=== PATIENT | female | born 1935 | race Two or more races ===

== ENCOUNTER 2017-04-12 21:00 | Emergency (ER) | payer MEDICARE, OTHER ==
[~2017-04-12] VITALS: Ht 160 cm; Wt 95.3 kg
[2017-04-12] MEDS ORDERED: [UNRECOGNIZED DRUG - OTHER] (22:33)
[2017-04-12] MEDS ORDERED: MYRBETRIQ 50 MG (22:33)
[2017-04-12] MEDS ORDERED: BACLOFEN 20 MG (22:33)
[2017-04-12] MEDS ORDERED: METOCLOPRAM (22:33)
[2017-04-12] MEDS ORDERED: HCTZ (22:33)
[2017-04-12] MEDS ORDERED: ALENDRONATE 70 MG (22:33)
[2017-04-12] MEDS ORDERED: PYRIDOSTIGMINE 60 MG (22:33)
[2017-04-12] MEDS ORDERED: CLONAZEPAM TAB 0.5MG (22:33)
[2017-04-12] MEDS ORDERED: LISINOPRIL 10 MG (22:33)
[2017-04-12] MEDS ORDERED: SPIRONOLACT TAB 25MG (22:33)
[2017-04-12] MEDS ORDERED: DEXILANT CAP 60MG DR (22:33)
[2017-04-12] MEDS ORDERED: DONEPEZIL 5 MG (22:33)
[2017-04-12] MEDS ORDERED: ISOSORB MONO (22:33)
[2017-04-12] MEDS ORDERED: TRAMADOL HCL TAB 50MG (22:33)
[2017-04-12] MEDS ORDERED: PAROXETINE 10 MG (22:33)
[2017-04-12] MEDS ORDERED: LYRICA 75 MG (22:33)
[2017-04-12] MEDS ORDERED: ATORVASTATIN TAB 40MG (22:33)
[2017-04-12] MEDS ORDERED: IBUPROFEN TAB 800MG (22:33)
[2017-04-12] MEDS ORDERED: NAMENDA 7 MG (22:33)
[2017-04-12] MEDS ORDERED: CARVEDILOL 3.125 MG (22:33)
--- NOTE | 2017-04-12 22:56 | NUR ---
pt to room via w/c. Pt c/o left sided rib pain radiating to her back s/p mech fall. Pt repositioned with pillows for comfort. Resps shallow but otherwise no resp distress noted. Family remains at bedside. Awaiting further eval.
[2017-04-12] MEDS ORDERED: HYDROMORPHONE 1 MG/1 ML DISP.SYRIN IV ONE (23:15)
[2017-04-12] MEDS ORDERED: ONDANSETRON 4 MG/2 ML VIAL IV ONE (23:15)
--- NOTE | 2017-04-12 23:27 | NUR ---
pt medicated for discomfort, will monitor for effects of medication. Pt to CT via [facility]
[2017-04-12] MEDS ORDERED: HYDROMORPHONE 1 MG/1 ML DISP.SYRIN ONE (23:28)
[2017-04-12] MEDS ORDERED: ONDANSETRON 4 MG/2 ML VIAL ONE (23:28)
[2017-04-12 23:34] LABS: BASOPHILS % (AUTO) 0.6 % (0.0-2.0); EOSINOPHILS # (AUTO) 0.2 K/uL (0.0-0.7); EOSINOPHILS % (AUTO) 2.8 % (0.0-7.0); HEMATOCRIT 46.1 % (37-47); HEMOGLOBIN 15.8 G/DL (12.0-16.0); LYMPHOCYTES # (AUTO) 2.1 K/UL (0.8-4.8); LYMPHOCYTES % (AUTO) 26.5 % (20.5-51.5); MEAN CORPUSCULAR HEMOGLOBIN 30.1 UUG (27.0-31.0); MEAN CORPUSCULAR HGB CONC 34 g/dL (32.0-37.0); MEAN CORPUSCULAR VOLUME 88.2 FL (81.0-99.0); MONOCYTES # (AUTO) 0.7 K/UL (0.1-1.30); MONOCYTES % (AUTO) 9.2 % (0.0-11.0); NEUTROPHILS # (AUTO) 5.1 K/UL (1.8-8.9); NEUTROPHILS % (AUTO) 60.9 % (38.5-71.5); PLATELET COUNT (AUTO) 254 K/UL (150-450); RED BLOOD CELL COUNT(AUTO) 5.23 MIL/UL (4.2-5.4); WHITE BLOOD COUNT (AUTO) 8.1 K/UL (4.0-11.2)
[2017-04-12 23:46] LABS: ALANINE AMINOTRANSFERASE 50 U/L (14-59); ALKALINE PHOSPHATASE 132 U/L (50-136); ASPARTATE AMINOTRANSFERASE 30 U/L (15-37); BILIRUBIN,DIRECT 0.1 mg/dL (0.0-0.2); BILIRUBIN,TOTAL 0.9 mg/dL (0.2-1.0); CARBON DIOXIDE 26 mmol/L (21-32); CHLORIDE 103 mmol/L (98-107); CREATININE 0.8 mg/dL (0.6-1.3); GLUCOSE 120 mg/dL (74-106); LIPASE 63 U/L (73-393); POTASSIUM 3.5 mmol/L (3.5-5.1); TOTAL PROTEIN, SERUM 7.2 g/dL (6.4-8.2); UREA NITROGEN, BLOOD 13 mg/dL (7-18)
--- NOTE | 2017-04-12 23:52 | NUR ---
Pt returned from CT via [facility].
[2017-04-13] MEDS ORDERED: HYDROMORPHONE 1 MG/1 ML DISP.SYRIN IV ONE (00:45)
--- NOTE | 2017-04-13 01:04 | NUR ---
Pt medicated for returning pain. Will monitor for effects of medication
[2017-04-13] MEDS ORDERED: HYDROMORPHONE 1 MG/1 ML DISP.SYRIN ONE (01:16)
--- NOTE | 2017-04-13 01:30 | NUR ---
Pt stable for discharge per Dr. Suarez. IV dc'd, catheter intact. Drsg applied. No problems noted to site. Pt and family given ACI. Both verbalized understanding of dc instructions. Pt wheeled out of er via w/c with ride home.
[2017-04-13 01:41] VITALS: BP 115/63
== END 2017-04-13 01:30 | disposition home or self-care (01) ==
LOC: ER 21:02
DX: S39.81XA Other specified injuries of abdomen, initial encounter (principal); W17.2XXA Fall into hole, initial encounter; Y93.89 Activity, other specified; Y92.096 Garden or yard of other non-institutional residence as the place of occurrence of the external cause; Y99.8 Other external cause status; I11.0 Hypertensive heart disease with heart failure; I50.9 Heart failure, unspecified; E11.9 Type 2 diabetes mellitus without complications; Z86.73 Personal history of transient ischemic attack (TIA), and cerebral infarction without residual deficits; Z88.0 Allergy status to penicillin; Z88.1 Allergy status to other antibiotic agents
CPT/HCPCS: 36415; 70030-TC; 71010; 83690; 85025; 85730; 93005; A4663; J1170; J2405